=== PATIENT | male | born 1965 | race Caucasian/White ===

== ENCOUNTER → 2016-11-15 | Outpatient (CLI) | payer BC ==
[~2016-11-15] MED LIST: AMOX500C3 PO; ASPI325T39 PO; CEFU1TAB36 PO; CHOL20007 PO; CICL8SOL4 TOP; CLOP1TAB15 PO; COEN1CAP28 PO; COEN1CAP7 PO; LPR25 PO; MAGN250T22 PO; MAGN250T3 PO; NTRSL3 UT; OMEP40CA41 PO; POTA99TA PO; RANI150T3 PO; SIMV40TA4 PO
[2016-11-15 12:28] LABS: HEMATOCRIT 43.8 % (42-52); MEAN CELL VOLUME 86.9 fL (80-100); MEAN CORPUSCULAR HEMOGLOBIN 30.8 pg (25-34); MEAN CORPUSCULAR HGB CONC 35.4 g/dl (32-36); MEAN PLATELET VOLUME 9.7 fL (7.4-10.4); PLATELET COUNT 121 K/uL (130-400); RED BLOOD COUNT 5.04 M/uL (4.7-6.1); WHITE BLOOD COUNT 16.04 K/uL (4.8-10.8)
[2016-11-15 12:35] LABS: ALT/SGPT 31 U/L (12-78); BLOOD UREA NITROGEN 12 mg/dl (7-18); BUN/CREATININE RATIO 9.8 (10-20); CARBON DIOXIDE 22 mmol/L (21-32); CHLORIDE 107 mmol/L (98-107); GLUCOSE 109 mg/dl (70-99); POTASSIUM 4.3 mmol/L (3.5-5.1); SODIUM 141 mmol/L (136-145)
[2016-11-15 12:41] LABS: ALB/GLOB RATIO 1.6 (0.9-2); ALKALINE PHOSPHATASE 57 U/L (45-117); AST/SGOT 13 U/L (15-37)
[2016-11-15 13:13] LABS: BASO % 0.4 %; BASO ABS # 0.07 K/uL (0-0.2); COMPLETE YES; EOS % 1.2 %; IG% 0.4 %; LYMPH % 65.6 %; LYMPH ABS # 10.53 K/uL (1.2-3.4); MONO % 5.8 %; NEUT % 26.6 %
== END | disposition home or self-care (01) ==
LOC: C.LABBFT 08:22
PROVIDERS: ATTEND Nurse Practitioner
DX: R19.5 Other fecal abnormalities (principal)

== ENCOUNTER → 2016-11-16 | Outpatient (CLI) | payer BC ==
[2016-11-25 12:01] LABS: O&P SOURCE OTHER-STOOL
== END | disposition home or self-care (01) ==
LOC: C.LABSPEC 12:15
PROVIDERS: ATTEND Nurse Practitioner
DX: R19.5 Other fecal abnormalities (principal)

== ENCOUNTER → 2016-11-18 | Outpatient (CLI) | payer BC ==
--- NOTE | 2016-11-18 09:06 | DIAGNOSTIC IMAGING REPORT ---
ABDOMEN LIMITED (US) CLINICAL HISTORY: MID ABDOMEN CYST, epigastric PAIN, PT TO CT AFTER PLEASE COMPARISON STUDY: Abdomen and pelvis CT 04/28/2016. FINDINGS: There are 3 similar-appearing slightly hyperechoic areas within the subcutaneous fat of the mid sternal region, mid abdomen, and left lateral abdomen. These could represent small lipomas or areas of fat necrosis/contusions. No fluid collections identified. No hematoma. The dominant lesion within the midabdomen 3.3 x 2.1 x 0.8 cm. IMPRESSION: There are 3 similar-appearing slightly hypoechoic areas within the subcutaneous fat of the mid sternal region, mid abdomen, and left lateral abdomen which correspond to the patient's area of pain. These are nonspecific but could represent small lipomas or areas of fat necrosis/contusions if the patient has had recent injury. Electronically signed by: Shaji Reyes M.D. 11/18/2016 9:04 AM Dictated Date/Time: 11/18/2016 9:02 AM
== END | disposition home or self-care (01) ==
LOC: C.ULTR 08:01
PROVIDERS: ATTEND Nurse Practitioner
DX: D80.1 Nonfamilial hypogammaglobulinemia (principal)

== ENCOUNTER → 2016-11-18 | Outpatient (CLI) | payer BC ==
--- NOTE | 2016-11-18 12:18 | DIAGNOSTIC IMAGING REPORT ---
ABDOMEN AND PELVIS CT WITH IV AND ORAL CONTRAST CT DOSE: 1027.25 mGycm HISTORY: Generalized abdominal pain. Leukemia, lymphocytic, [id number] TECHNIQUE: Multiaxial CT images of the abdomen and pelvis were performed following the use of intravenous and oral contrast. COMPARISON STUDY: Abdominal ultrasound 11/18/2016. Abdomen and pelvis CT 04/28/2016. FINDINGS: The lung bases are clear. No pneumoperitoneum. No pneumatosis. No suspicious lytic or blastic osseous lesions. Same day ultrasound findings within the subcutaneous fat are not identified by this modality. A few subcentimeter lymph nodes anterior to the heart are not significantly changed. Mildly enlarged gastrohepatic, periportal, and multiple subcentimeter retroperitoneal lymph nodes remain stable. Dominant periportal lymph node measures 2.8 x 1.8 cm. There are multiple borderline enlarged iliac/pelvic sidewall lymph nodes which are also unchanged. A single prominent right inguinal lymph node remains stable. Suspect postoperative changes within the right inguinal region. Right paratesticular soft tissue thickening is only partially imaged but does not appear to be significantly changed. Subcentimeter mesenteric lymph nodes remain stable. The liver, pancreas, adrenal glands, and kidneys are unremarkable. The spleen remains mildly enlarged measuring 13 cm in length. There are few stones within the gallbladder. Mild bladder wall thickening remains unchanged. Colonic diverticulosis. No bowel wall thickening or obstruction. IMPRESSION: 1. Overall, no significant change compared to the prior study. 2. No bowel wall thickening or obstruction. 3. Mild lymphadenopathy within the abdomen and pelvis remains stable. This is consistent with the patient's history of CLL. 4. No change in the partially visualized right paratesticular soft tissue thickening. 5. Cholelithiasis. 6. Stable mild splenomegaly. Electronically signed by: Shaji Reyes M.D. 11/18/2016 12:16 PM Dictated Date/Time: 11/18/2016 12:04 PM
== END | disposition home or self-care (01) ==
LOC: C.CTS 08:05
PROVIDERS: ATTEND Internal Medicine
DX: C91.10 Chronic lymphocytic leukemia of B-cell type not having achieved remission (principal); R10.9 Unspecified abdominal pain

== ENCOUNTER → 2016-12-27 | Outpatient (CLI) | payer BC ==
--- NOTE | 2016-12-27 12:03 | DIAGNOSTIC IMAGING REPORT ---
CERVICAL SPINE 3 VIEWS HISTORY: M54.2 Neck [id number] COMPARISON: None. FINDINGS: The cervical spine is visualized from C1 through the superior endplate of T1. There is no fracture. No subluxation. Disc spaces are preserved. Prevertebral soft tissues and the atlantodens interval are intact. IMPRESSION: No fracture or subluxation within the cervical spine. Electronically signed by: Mamadou Connors M.D. 12/27/2016 12:02 PM Dictated Date/Time: 12/27/2016 12:01 PM
== END | disposition home or self-care (01) ==
LOC: C.RAD 11:29
PROVIDERS: ATTEND Internal Medicine
DX: M54.2 Cervicalgia (principal)

== ENCOUNTER → 2017-03-18 | Day surgery (SDC) | payer BC ==
[2017-03-09 11:01] VITALS: Ht 176.5 cm; Wt 100.9 kg
[~2017-03-18] VITALS: Ht 176.5 cm; Wt 100.9 kg
[~2017-03-18] MED LIST changes: +ATROPINE SULFATE 0.1 MG/ML 5ML SYR IV PRN; +BUPIVACAINE/EPINEPHRINE 0.5% MPF 1:200,000 30 ML VIAL ONE; +CEFAZOLIN 2000 MG/60 ML D5W IV SCH; -CEFU1TAB36 PO; -CICL8SOL4 TOP; -COEN1CAP28 PO; +DEXAMETHASONE SOD INJ 4 MG/ML VIAL ONE; +EpHEDrine SULFATE INJ 50 MG/ML AMP IV PRN; +FENTANYL CITRATE INJ 50 MCG/1 ML 2 ML VIAL IV PRN; +FENTANYL CITRATE INJ 50 MCG/1 ML 2 ML VIAL ONE; +LACTATED RINGER'S 1000ML 1,000 ML IV SCH; +LIDOCAINE HCL 2% 2 ML VIAL (20MG/ML) ONE; -MAGN250T3 PO; +MIDAZOLAM HCL 1 MG/ML 2ML VIAL ONE; +ONDANSETRON INJ 2 MG/ML 2 ML VIAL IV PRN; +ONDANSETRON INJ 2 MG/ML 2 ML VIAL ONE; -POTA99TA PO; +PROPOFOL IV EMULSION 10 MG/ML 20 ML VIAL IV ONE; +SODIUM CHLORIDE 0.9% 1000ML 1,000 ML IV SCH
--- NOTE | 2017-03-18 06:51 | History and Physical ---
History & Physical Date March 18, 2017. History of Present Illness The patient is a 51 year old male with complaints of several soft tissue masses that have been getting larger and uncomfortable. one on left flank of abdomen and one centrally on abdomen. Past Medical/Surgical History Medical Problems: (1) CLL (chronic lymphocytic leukemia) (2) Heart disease (3) HTN (hypertension) (4) Hypogammaglobulinemia Surgical Problems: (1) H/O heart artery stent Allergies Coded Allergies: No Known Allergies (Verified , 03/18/17) Home Medications Scheduled Aspirin (Aspirin Ec), 325 MG PO QAM Cholecalciferol (Vitamin D3), 2 TAB PO HS Clopidogrel (Plavix), 75 MG PO QAM Coenzyme Q10 (Ubidecarenone) (Coq10), 1 CAP PO QAM Magnesium Oxide (Magnesium), 1 TAB PO QAM Metoprolol Tartrate (Lopressor), 12.5 MG PO BID Nitroglycerin (Nitrostat), 0.3 MG UT PRN Omeprazole (Prilosec), 40 MG PO QAM Ranitidine Hcl (Zantac), 150 MG PO BID Simvastatin (Zocor), 20 MG PO HS Simvastatin (Zocor), 10 MG PO QAM Scheduled PRN Amoxicillin (Amoxil), 500 MG PO TID PRN for pre dental appointments Physical Examination Skin: warm/dry Eyes: normal inspection, EOMI ENT: normal ENT inspection Head: normocephalic Neck: supple Respiratory/Chest: normal breath sounds, no respiratory distress Cardiovascular: regular rate, rhythm Abdomen / GI: normal bowel sounds, + pertinent finding (2 soft tissue masses c/ w lipomas. each approx 3 cm. one central on upper abdomen, the second on left flank. nontender. mobile. soft. ) Extremities: normal inspection Neurologic/Psych: alert, oriented x 3 Diagnosis soft tissue masses times 2. symptomatic Plan of Treatment will excise under sedation. discussed risks. questions answered.
--- NOTE | 2017-03-18 07:10 | Discharge Instructions ---
Discharge Instructions Date of Service March 18, 2017. Admission Reason for Admission: Soft Tissues Masses X 3 Chest/Abdominal Wall Discharge Discharge Diagnosis / Problem: Soft Tissue Masses X 3 Chest/Abdominal Wall Discharge Goals Goal(s): Decrease discomfort, Improve function Activity Recommendations Activity Limitations: as noted below Lifting Limitations: no more than 10 pounds Exercise/Sports Limitations: until after follow-up appointment May Resume Sexual Activity: after follow-up appointment Shower/Bathe: tomorrow . Instructions / Follow-Up Instructions / Follow-Up Please follow-up with Dr. Sandy or Pat Garcia PA-C in the office in 1-2 weeks. Please call the office at [phone] to make an appointment. Please call the office at [phone] with any questions or concerns. Current Hospital Diet Patient's current hospital diet: Discharge Diet Recommended Diet: Regular Diet Pending Studies Studies pending at discharge: no Medical Emergencies . Who to Call and When: Medical Emergencies: If at any time you feel your situation is an emergency, please call 911 immediately. . Non-Emergent Contact Non-Emergency issues call your: Primary Care Provider, Surgeon Call Non-Emergent contact if: temperature is above 101.5, your pain is not controlled, wound has increased drainage, wound has increased redness . "Provider Documentation" section prepared by Pat Garcia. . VTE Core Measure Inpt VTE Proph given/why not?: SCD's [place] Drug Monitoring Program Search Results: patient reviewed within database, no issues identified
--- NOTE | 2017-03-18 07:45 | [facility] Operative Report ---
Operative Report Operative Date March 18, 2017. Pre-Operative Diagnosis Soft Tissue Masses x 2 Abdominal Wall Post-Operative Diagnosis abdominal wall lipomas X 2. anterior 2.5 cm. flank 3.0 cm Procedure(s) Performed excision of abdominal wall lipomas X 2. Surgeon Dr. Mack Sandy [employer] Surgeon(s) Herbert Garcia PA-C Findings abdominal wall lipomas X 2 Specimens A. Abdominal wall lipoma x w Anesthesia MAC/marcaine Complication(s) None Disposition Recovery Room / PACU I attest to the content of the Intraoperative Record and any orders documented therein. Any exceptions are noted below.
--- NOTE | 2017-03-18 08:04 | Anesthesia Progress Nt - [facility] ---
Anesthesia Post Op Note Date & Time March 18, 2017 at 08:05 Vital Signs Pain Intensity: 0 Vital Signs Past 12 Hours Date Time Temp Pulse Resp B/P Pulse Ox O2 Delivery O2 Flow Rate FiO2 03/18/17 07:43 36.6 82 16 101/76 99 Room Air 03/18/17 06:24 36.5 58 16 127/79 97 Room Air Notes Mental Status: alert / awake / arousable, participated in evaluation Pt Amnestic to Procedure: Yes Nausea / Vomiting: adequately controlled Pain: adequately controlled Airway Patency, RR, SpO2: stable & adequate BP & HR: stable & adequate Hydration State: stable & adequate Anesthetic Complications: no major complications apparent
[2017-03-18 08:17] VITALS: BP 119/73; PULSE 55; TEMP 37.1; O2SAT 98
--- NOTE | 2017-03-18 08:29 | OPERATIVE REPORT ---
DATE OF OPERATION: 03/18/2017 PREOPERATIVE DIAGNOSIS: Abdominal wall soft tissue masses that are symptomatic x2. POSTOPERATIVE DIAGNOSES: Abdominal wall lipomas x2. 1. Anterior, measuring approximately 2.5 cm. 2. Left flank, measuring approximately 3.0 cm. SURGEON: Dr. Robbin Sandy. SENIOR GAME ADVISOR: Pat Garcia PA-C. ESTIMATED BLOOD LOSS: 5 mL. COMPLICATIONS: No immediate. ANESTHESIA: Monitored anesthesia care with local Marcaine. DESCRIPTION OF PROCEDURE: After informed consent was obtained, the patient was taken to the operating suite and placed in the supine position. After IV sedation was administered by anesthesia, the abdomen was sterilely prepped and draped in the usual fashion. We began with the anterior soft tissue mass. Marcaine was infiltrated around the area. I then used a 15 blade scalpel to make a vertical incision directly over top of the palpable lesion. I carried this down through the soft tissue using electrocautery. We immediately encountered encapsulated lipoma. It popped out of the incision rather easily in 1 piece. No other palpable abnormalities were identified through the incision. We irrigated it and closed it with 3-0 Vicryl and 4-0 Monocryl. Dermabond glue was placed for dressing. Exact same technique was used to the left flank. It was infiltrated with Marcaine, an incision made, and an encapsulated type of lipoma popped out. After we removed it, we did palpate the area and found no other palpable abnormalities. I irrigated the wound and closed it with 3-0 Vicryl and 4-0 Monocryl. Dermabond was used for that incision as well. The patient was then awakened and transferred to recovery in stable condition. I attest to the content of the Intraoperative Record and any orders documented therein. Any exceptio ns are noted below.
== END | disposition home or self-care (01) ==
LOC: X.SURG 06:12
PROVIDERS: ATTEND Surgery
DX: D17.1 Benign lipomatous neoplasm of skin and subcutaneous tissue of trunk (principal); R19.00 Intra-abdominal and pelvic swelling, mass and lump, unspecified site; C91.10 Chronic lymphocytic leukemia of B-cell type not having achieved remission; I51.9 Heart disease, unspecified; I10 Essential (primary) hypertension; D80.1 Nonfamilial hypogammaglobulinemia; Z79.82 Long term (current) use of aspirin; K21.9 Gastro-esophageal reflux disease without esophagitis; E66.9 Obesity, unspecified; F17.210 Nicotine dependence, cigarettes, uncomplicated; G47.33 Obstructive sleep apnea (adult) (pediatric); I25.2 Old myocardial infarction; J44.9 Chronic obstructive pulmonary disease, unspecified

== ENCOUNTER → 2017-03-22 | Outpatient (CLI) | payer BC ==
[~2017-03-22] MED LIST changes: -ATROPINE SULFATE 0.1 MG/ML 5ML SYR IV PRN; -BUPIVACAINE/EPINEPHRINE 0.5% MPF 1:200,000 30 ML VIAL ONE; -CEFAZOLIN 2000 MG/60 ML D5W IV SCH; -DEXAMETHASONE SOD INJ 4 MG/ML VIAL ONE; -EpHEDrine SULFATE INJ 50 MG/ML AMP IV PRN; -FENTANYL CITRATE INJ 50 MCG/1 ML 2 ML VIAL IV PRN; -FENTANYL CITRATE INJ 50 MCG/1 ML 2 ML VIAL ONE; -LACTATED RINGER'S 1000ML 1,000 ML IV SCH; -LIDOCAINE HCL 2% 2 ML VIAL (20MG/ML) ONE; -MIDAZOLAM HCL 1 MG/ML 2ML VIAL ONE; -ONDANSETRON INJ 2 MG/ML 2 ML VIAL IV PRN; -ONDANSETRON INJ 2 MG/ML 2 ML VIAL ONE; -PROPOFOL IV EMULSION 10 MG/ML 20 ML VIAL IV ONE; +SINCALIDE INJ 2 MCG in SODIUM CHLORIDE 0.9% 100ML 100 ML IV ONE; -SODIUM CHLORIDE 0.9% 1000ML 1,000 ML IV SCH
--- NOTE | 2017-03-22 09:57 | DIAGNOSTIC IMAGING REPORT ---
HEPATOBILIARY EF IMAGING CLINICAL HISTORY: Abdominal pain. Leukemia. COMPARISON STUDY: CT scan dated 11/18/2016 FINDINGS: The patient was injected with 5.5 mCi of technetium 99m Choletec. Hepatic excretion appeared unremarkable. The gallbladder was first visualized on the 10 minute image. At 1 hour, the patient was administered 2 mcg of sincalide utilizing a 30 minute intravenous infusion. The gallbladder ejection fraction was normal measuring 94%. There was normal passage of activity into small bowel IMPRESSION: Normal study. No evidence of cystic duct obstruction. Gallbladder ejection fraction of 94%. Electronically signed by: Yann Doran M.D. 03/22/2017 9:55 AM Dictated Date/Time: 03/22/2017 9:54 AM
== END | disposition home or self-care (01) ==
LOC: C.NUCL 07:38
PROVIDERS: ATTEND Internal Medicine Gastroenterology
DX: R10.13 Epigastric pain (principal); C95.90 Leukemia, unspecified not having achieved remission

== ENCOUNTER → 2017-04-08 | Outpatient (CLI) | payer BC ==
[~2017-04-08] MED LIST changes: -SINCALIDE INJ 2 MCG in SODIUM CHLORIDE 0.9% 100ML 100 ML IV ONE
[2017-04-08 12:24] LABS: MEAN CELL VOLUME 88.8 fL (80-100); MEAN CORPUSCULAR HEMOGLOBIN 30.9 pg (25-34); MEAN CORPUSCULAR HGB CONC 34.8 g/dl (32-36); MEAN PLATELET VOLUME 9.8 fL (7.4-10.4); PLATELET COUNT 118 K/uL (130-400); RED BLOOD COUNT 4.73 M/uL (4.7-6.1); WHITE BLOOD COUNT 17.35 K/uL (4.8-10.8)
[2017-04-08 12:43] LABS: CALCIUM 8.6 mg/dl (8.5-10.1)
[2017-04-08 12:46] LABS: ALB/GLOB RATIO 1.3 (0.9-2); ALT/SGPT 23 U/L (12-78); BLOOD UREA NITROGEN 11 mg/dl (7-18); BUN/CREATININE RATIO 9.6 (10-20); CARBON DIOXIDE 25 mmol/L (21-32); CHLORIDE 109 mmol/L (98-107); CHOLESTEROL 135 mg/dl (0-200); GLUCOSE 92 mg/dl (70-99); POTASSIUM 4.3 mmol/L (3.5-5.1); SODIUM 141 mmol/L (136-145); TRIGLYCERIDES 165 mg/dl (0-150); VERY LOW DENSITY LIPOPROT CALC 33 mg/dl
[2017-04-08 12:56] LABS: ALKALINE PHOSPHATASE 67 U/L (45-117); AST/SGOT 13 U/L (15-37); CHOLESTEROL/HDL RATIO 4.8; HDL CHOLESTEROL 28 mg/dl; LDL CHOLESTEROL CALCULATED 74 mg/dl; THYROID STIMULATING HORMONE 0.827 uIu/ml (0.300-4.500)
[2017-04-08 13:14] LABS: ESTIMATED AVERAGE GLUCOSE 105 mg/dl; HA1C FLAG Normal (Normal)
[2017-04-08 14:08] LABS: BASO % 0.3 %; BASO ABS # 0.06 K/uL (0-0.2); COMPLETE YES; IG% 0.3 %; LYMPH % 64.1 %; LYMPH ABS # 11.12 K/uL (1.2-3.4); MONO % 3.9 %; NEUT % 30.4 %
== END | disposition home or self-care (01) ==
LOC: C.LAB 10:42
PROVIDERS: ATTEND Internal Medicine Cardiovascular Disease
DX: R73.01 Impaired fasting glucose (principal); Z12.5 Encounter for screening for malignant neoplasm of prostate; C91.10 Chronic lymphocytic leukemia of B-cell type not having achieved remission; I25.10 Atherosclerotic heart disease of native coronary artery without angina pectoris

== ENCOUNTER → 2017-05-13 | Outpatient (CLI) | payer BC ==
[2017-05-13 13:11] LABS: HEMATOCRIT 41.3 % (42-52); MEAN CELL VOLUME 88.4 fL (80-100); MEAN CORPUSCULAR HEMOGLOBIN 30.2 pg (25-34); MEAN CORPUSCULAR HGB CONC 34.1 g/dl (32-36); MEAN PLATELET VOLUME 9.3 fL (7.4-10.4); PLATELET COUNT 111 K/uL (130-400); RED BLOOD COUNT 4.67 M/uL (4.7-6.1); WHITE BLOOD COUNT 15.99 K/uL (4.8-10.8)
[2017-05-13 13:42] LABS: ALT/SGPT 24 U/L (12-78); BLOOD UREA NITROGEN 13 mg/dl (7-18); BUN/CREATININE RATIO 10.6 (10-20); CALCIUM 8.8 mg/dl (8.5-10.1); CARBON DIOXIDE 25 mmol/L (21-32); CHLORIDE 111 mmol/L (98-107); GLUCOSE 112 mg/dl (70-99); POTASSIUM 4.2 mmol/L (3.5-5.1); SODIUM 141 mmol/L (136-145)
[2017-05-13 13:54] LABS: ALB/GLOB RATIO 1.7 (0.9-2); ALKALINE PHOSPHATASE 59 U/L (45-117); AST/SGOT 12 U/L (15-37); IMMUNOGLOBULN A 49.9 mg/dL (70-400); IMMUNOGLOBULN M 38.4 mg/dL (40-230)
[2017-05-13 14:11] LABS: BASO % 0.3 %; BASO ABS # 0.05 K/uL (0-0.2); COMPLETE YES; EOS % 0.9 %; IG% 0.3 %; LYMPH % 66.8 %; LYMPH ABS # 10.68 K/uL (1.2-3.4); MONO % 3.6 %; NEUT % 28.1 %; SMUDGE CELLS PRESENT
== END | disposition home or self-care (01) ==
LOC: C.LAB 12:10
PROVIDERS: ATTEND Nurse Practitioner Family
DX: C91.10 Chronic lymphocytic leukemia of B-cell type not having achieved remission (principal)

== ENCOUNTER → 2017-07-30 | Outpatient (CLI) | payer BC ==
[2017-07-30 14:34] LABS: HEMATOCRIT 40.9 % (42-52); MEAN CELL VOLUME 86.1 fL (80-100); MEAN CORPUSCULAR HEMOGLOBIN 31.2 pg (25-34); MEAN CORPUSCULAR HGB CONC 36.2 g/dl (32-36); MEAN PLATELET VOLUME 9.3 fL (7.4-10.4); PLATELET COUNT 109 K/uL (130-400); RED BLOOD COUNT 4.75 M/uL (4.7-6.1); WHITE BLOOD COUNT 14.24 K/uL (4.8-10.8)
[2017-07-30 14:50] LABS: ALT/SGPT 20 U/L (12-78); AST/SGOT 14 U/L (15-37); BLOOD UREA NITROGEN 15 mg/dl (7-18); BUN/CREATININE RATIO 14.8 (10-20); CALCIUM 8.9 mg/dl (8.5-10.1); CARBON DIOXIDE 25 mmol/L (21-32); CHLORIDE 111 mmol/L (98-107); GLUCOSE 89 mg/dl (70-99); POTASSIUM 4.2 mmol/L (3.5-5.1); SODIUM 142 mmol/L (136-145)
[2017-07-30 14:57] LABS: BASO % 0.4 %; BASO ABS # 0.05 K/uL (0-0.2); COMPLETE YES; EOS % 0.9 %; IG% 0.3 %; LYMPH % 68.5 %; LYMPH ABS # 9.75 K/uL (1.2-3.4); MONO % 5.1 %; NEUT % 24.8 %
[2017-07-30 15:01] LABS: ALB/GLOB RATIO 1.7 (0.9-2); ALKALINE PHOSPHATASE 59 U/L (45-117); IMMUNOGLOBULN M 49.9 mg/dL (40-230)
== END | disposition home or self-care (01) ==
LOC: C.LAB 13:43
PROVIDERS: ATTEND Nurse Practitioner Family
DX: C91.10 Chronic lymphocytic leukemia of B-cell type not having achieved remission (principal)

== ENCOUNTER → 2017-10-11 | Outpatient (CLI) | payer BC | END | disposition home or self-care (01) | LOC: C.LAB1850 08:06 | PROVIDERS: ATTEND Internal Medicine Cardiovascular Disease | DX: I25.10 Atherosclerotic heart disease of native coronary artery without angina pectoris (principal) ==